=== PATIENT | male | born 1970 | race Caucasian/White ===

== ENCOUNTER 2019-11-07 13:03 | Day surgery (SDC) | payer OTHER ==
[~2019-11-07] VITALS: Ht 167.6 cm; Wt 75.0 kg
[2019-11-07] MEDS ORDERED: CHLORHEXIDINE 15 ML UDC MM STA (13:26)
[2019-11-07] MEDS ORDERED: AMOXICILLIN (13:29)
[2019-11-07] MEDS ORDERED: HYDROCODONE (13:29)
[2019-11-07] MEDS ORDERED: ONDA4TAB7 PO (13:29)
[2019-11-07 13:30] VITALS: BP 132/90
[2019-11-07] MEDS ORDERED: LACTATED RINGERS 1,000 ML IV ONE (13:35)
[2019-11-07] MEDS ORDERED: FENTANYL PF 100 MCG/2ML ONE (14:29)
[2019-11-07] MEDS ORDERED: MIDAZOLAM 1 MG/ML, 2ML ONE (14:29)
[2019-11-07] MEDS ORDERED: ONDANSETRON 2MG/ML, 2ML ONE ×2 (14:38→14:59)
[2019-11-07] MEDS ORDERED: DEXAMETHASONE 4 MG/ML, 1ML ONE ×2 (14:38→14:59)
[2019-11-07] MEDS ORDERED: PHENYLEPHRINE 10 MG/ML ONE (14:38)
[2019-11-07] MEDS ORDERED: CEFAZOLIN 1,000 MG ONE (14:59)
[2019-11-07] MEDS ORDERED: PROPOFOL 10 MG/ML, 20ML ONE (14:59)
[2019-11-07] MEDS ORDERED: SUCCINYLCHOLINE 20 MG/ML, 10ML ONE (14:59)
[2019-11-07] MEDS ORDERED: NEOSTIGMINE 1 MG/ML, 10ML ONE (14:59)
[2019-11-07] MEDS ORDERED: GLYCOPYRROLATE 0.2MG/1ML, 5ML ONE (14:59)
[2019-11-07] MEDS ORDERED: ROCURONIUM 10MG/ML,5ML ONE (14:59)
== END 2019-11-07 17:30 | disposition home or self-care (01) ==
LOC: OUT 13:03
PROVIDERS: ATTEND Internal Medicine Gastroenterology
DX: C15.8 Malignant neoplasm of overlapping sites of esophagus (principal); Z11.59 Encounter for screening for other viral diseases; C96.9 Malignant neoplasm of lymphoid, hematopoietic and related tissue, unspecified; K29.50 Unspecified chronic gastritis without bleeding; K31.89 Other diseases of stomach and duodenum; K22.8 Other specified diseases of esophagus; F15.10 Other stimulant abuse, uncomplicated; Z87.891 Personal history of nicotine dependence; Z79.899 Other long term (current) drug therapy; Z72.89 Other problems related to lifestyle; Z98.890 Other specified postprocedural states
CPT/HCPCS: 36415; 43236; 43239; 43242; 43249; 87635; 88172; 88173; 88177; 88305; 88341; 88342; A4648; C1725; J0330; J0690; J1100; J2250; J2370; J2405; J2704; J2710; J3010; J7120